=== PATIENT | female | born 1995 | race Caucasian/White ===

== ENCOUNTER → 2020-03-13 03:07 | Observation (INO) ==
[2020-03-13 02:29] LABS: Basophils # 0.1 K/mcL (0.0-0.2); Basophils % 0.4 %; Eosinophils # 0.2 K/mcL (0.0-0.6); Eosinophils % 1.9 %; Hematocrit 35.6 % (35.3-44.9); Hemoglobin 11.9 g/dL (11.5-15.4); Immature Granulocytes % 0.4 % (0-4); Lymphocytes # 2.8 K/mcL (0.6-4.6); Lymphocytes % 22.7 %; Mean Corpuscular HGB Conc 33.4 g/dL (31.6-35.5); Mean Corpuscular Hemoglobin 27.7 pg (28.0-33.3); Mean Corpuscular Volume 82.8 fL (83.0-100.0); Mean Platelet Volume 10.3 fL (9.4-12.4); Monocytes # 0.8 K/mcL (0.0-1.3); Monocytes % 6.7 %; Neutrophils # 8.4 K/mcL (1.6-8.9); Platelet Count 288 K/mcL (140-400); Red Cell Distribution Width 12.9 % (11.5-14.5); Segmented Neutrophils % 67.9 %; White Blood Count 12.4 K/mcL (4.3-11.1)
[2020-03-13 02:32] LABS: Protein/Creatinine Ratio,Urine 0.12 mg/mg (0.00-0.20)
[2020-03-13 02:42] LABS: Lactate Dehydrogenase 141 Units/L (140-271); Uric Acid 5.1 mg/dL (2.3-7.6); eGFR For African Americans > 60 (> 60); eGFR For Non-African Americans > 60 (> 60)
[2020-03-13 07:59] LABS: Alanine Aminotransferase 13 Units/L (7-52); Aspartate Amino Transferase 11 Units/L (13-39); BUN/Creatinine Ratio 18 (6-26); Blood Urea Nitrogen 8 mg/dL (6-20)
== END | disposition home or self-care (01) ==
LOC: 1NENULAB
PROVIDERS: ADMIT Student in an Organized Health Care Education/Training Program; ATTEND Student in an Organized Health Care Education/Training Program

== ENCOUNTER 2020-05-03 01:20 | Observation (INO) ==
[2020-05-03 02:07] LABS: Protein/Creatinine Ratio,Urine 0.11 mg/mg (0.00-0.20)
[2020-05-03 02:26] LABS: Basophils # 0.1 K/mcL (0.0-0.2); Basophils % 0.6 %; Eosinophils # 0.3 K/mcL (0.0-0.6); Eosinophils % 2.5 %; Hematocrit 35.2 % (35.3-44.9); Hemoglobin 11.4 g/dL (11.5-15.4); Immature Granulocytes % 0.3 % (0-4); Lymphocytes # 2.8 K/mcL (0.6-4.6); Lymphocytes % 27.5 %; Mean Corpuscular HGB Conc 32.4 g/dL (31.6-35.5); Mean Corpuscular Hemoglobin 26.3 pg (28.0-33.3); Mean Corpuscular Volume 81.3 fL (83.0-100.0); Mean Platelet Volume 11.3 fL (9.4-12.4); Monocytes # 0.7 K/mcL (0.0-1.3); Monocytes % 6.8 %; Neutrophils # 6.3 K/mcL (1.6-8.9); Platelet Count 279 K/mcL (140-400); Red Blood Count 4.33 M/mcL (3.82-4.97); Red Cell Distribution Width 12.6 % (11.5-14.5); Segmented Neutrophils % 62.3 %; White Blood Count 10.2 K/mcL (4.3-11.1)
[2020-05-03 02:48] LABS: Alanine Aminotransferase 9 Units/L (7-52); Aspartate Amino Transferase 12 Units/L (13-39); BUN/Creatinine Ratio 13 (6-26); Blood Urea Nitrogen 7 mg/dL (6-20); Lactate Dehydrogenase 163 Units/L (140-271); eGFR For African Americans > 60 (> 60); eGFR For Non-African Americans > 60 (> 60)
== END 2020-05-03 02:45 | disposition home or self-care (01) ==
LOC: 1NENULAB
PROVIDERS: ADMIT Obstetrics & Gynecology; ATTEND Obstetrics & Gynecology

== ENCOUNTER 2020-05-20 06:14 | Inpatient (IN) ==
[2020-05-20] MEDS ORDERED: Famotidine 20 MG/2 ML VIAL IVP PRN (06:36)
[2020-05-20] MEDS ORDERED: Naloxone 0.4 MG/ML INJ IVP PRN (06:36)
[2020-05-20] MEDS ORDERED: Metoclopramide 10 MG/2 ML VIAL IVP PRN ×2 (06:36→18:49)
[2020-05-20] MEDS ORDERED: CeFAZolin Syr 3,000MG/30 ML 3,000 MG/30 ML SYRINGE IVPB ONE (06:39)
[2020-05-20] MEDS ORDERED: Ringers Solution, Lactated 1,000 ML IVC SCH (06:45)
[2020-05-20] MEDS ORDERED: Ringers Solution, Lactated 1,000 ML ONE ×3 (06:51→14:22)
[2020-05-20 07:23] LABS: Basophils # 0.1 K/mcL (0.0-0.2); Basophils % 0.7 %; Eosinophils # 0.2 K/mcL (0.0-0.6); Eosinophils % 1.9 %; Hematocrit 37.2 % (35.3-44.9); Hemoglobin 11.9 g/dL (11.5-15.4); Immature Granulocytes % 0.3 % (0-4); Lymphocytes # 2.3 K/mcL (0.6-4.6); Lymphocytes % 22.4 %; Mean Corpuscular Hemoglobin 25.5 pg (28.0-33.3); Mean Corpuscular Volume 79.8 fL (83.0-100.0); Mean Platelet Volume 11.1 fL (9.4-12.4); Monocytes # 0.7 K/mcL (0.0-1.3); Monocytes % 6.6 %; Neutrophils # 7.1 K/mcL (1.6-8.9); Platelet Count 269 K/mcL (140-400); Red Blood Count 4.66 M/mcL (3.82-4.97); Red Cell Distribution Width 13.2 % (11.5-14.5); Segmented Neutrophils % 68.1 %; White Blood Count 10.4 K/mcL (4.3-11.1)
[2020-05-20] MEDS ORDERED: Dexamethasone 4 MG/ML VIAL ONE (07:41)
[2020-05-20] MEDS ORDERED: Ketorolac 30 MG/ML VIAL ONE (07:41)
[2020-05-20] MEDS ORDERED: Ondansetron 4 MG/2 ML VIAL ONE (07:41)
[2020-05-20] MEDS ORDERED: *HR* Phenylephrine 10 MG/ML VIAL ONE (07:41)
[2020-05-20] MEDS ORDERED: *HR* Oxytocin 10 UNIT/ML VIAL IM ONE ×2 (07:42→14:23)
[2020-05-20] MEDS ORDERED: EPHEDrine 50 MG/ML VIAL ONE (07:51)
[2020-05-20] MEDS ORDERED: *HR* Midazolam HCl 2 MG/2 ML VIAL ONE (07:52)
[2020-05-20] MEDS ORDERED: *HR* FentaNYL (PF) 100 MCG/2 ML VIAL ONE (07:53)
[2020-05-20] MEDS ORDERED: *HR* Morphine Sulfate/PF 10 MG/10 ML AMPUL ONE (07:53)
[2020-05-20 08:46] LABS: Amphetamine Screen,Urine Negative ng/mL (Cutoff=1000); Barbiturate Screen,Urine Negative ng/mL (Cutoff=200); Benzodiazepines Screen,Urine Negative ng/mL (Cutoff=200); Cannabinoid Screen,Urine Negative ng/mL (Cutoff = 50); Cocaine Screen,Urine Negative ng/mL (Cutoff= 300); Opiate Screen,Urine Negative ng/mL (Cutoff=300); Phencyclidine Screen,Urine Negative ng/mL (Cutoff=25)
[2020-05-20] MEDS ORDERED: *HR* Labetalol 20 MG/4 ML SYRINGE IVP ONE (15:15)
[2020-05-20] MEDS ORDERED: Oxytocin 20 units/ LR 1000 mL 20 UNIT/1,000 ML BAG IVC ONE (17:24)
[2020-05-20] MEDS ORDERED: Simethicone 80 MG TAB.CHEW PO PRN (18:49)
[2020-05-20] MEDS ORDERED: Ondansetron 4 MG/2 ML VIAL IVP PRN (18:49)
[2020-05-20] MEDS ORDERED: Rho Immune Globulin 1,500 UNIT SYRINGE IM ONE (18:49)
[2020-05-20] MEDS ORDERED: *HR* OxyCODONE/APAP 5/325 TABLET PO PRN (18:49)
[2020-05-20] MEDS ORDERED: Oxytocin 20 units/ LR 1000 mL 20 UNIT/1,000 ML BAG IVC SCH (18:49)
[2020-05-20] MEDS ORDERED: Sennosides 8.6 MG TABLET PO PRN (18:49)
[2020-05-20] MEDS: metroNIDAZOLE 500 MG TABLET PO SCH (21:23)
[2020-05-20] MEDS: cephALEXin 500 MG CAPSULE PO SCH (21:23)
[2020-05-20] MEDS: Ibuprofen 600 MG TABLET PO PRN (23:51)
[2020-05-21 07:15] LABS: Basophils % 0.2 %; Hematocrit 29.7 % (35.3-44.9); Immature Granulocytes % 0.4 % (0-4); Lymphocytes # 1.5 K/mcL (0.6-4.6); Lymphocytes % 12.5 %; Mean Corpuscular HGB Conc 32.3 g/dL (31.6-35.5); Mean Corpuscular Hemoglobin 26.2 pg (28.0-33.3); Mean Corpuscular Volume 80.9 fL (83.0-100.0); Monocytes # 1.1 K/mcL (0.0-1.3); Monocytes % 9.3 %; Neutrophils # 9.4 K/mcL (1.6-8.9); Platelet Count 227 K/mcL (140-400); Red Blood Count 3.67 M/mcL (3.82-4.97); Red Cell Distribution Width 13.2 % (11.5-14.5); Segmented Neutrophils % 77.6 %; White Blood Count 12.1 K/mcL (4.3-11.1)
[2020-05-21 07:19] LABS: Hemoglobin 9.6 g/dL (11.5-15.4)
[2020-05-21 07:52] VITALS: BP 122/75
[2020-05-21] MEDS: Ibuprofen 600 MG TABLET PO PRN (07:54)
[2020-05-21] MEDS: metroNIDAZOLE 500 MG TABLET PO SCH (07:55)
[2020-05-21] MEDS: cephALEXin 500 MG CAPSULE PO SCH (07:55)
[2020-05-21] MEDS ORDERED: Prenatal Vit/FA 1 EACH TABLET PO SCH (09:00)
== END 2020-05-21 14:19 | disposition home or self-care (01) | DRG 539 ==
LOC: 1NENULAB 06:14 → 1NENUOBS 18:38
PROVIDERS: ADMIT Student in an Organized Health Care Education/Training Program; ATTEND Student in an Organized Health Care Education/Training Program

== ENCOUNTER 2020-06-03 18:08 | Observation (INO) ==
[2020-06-03] MEDS ORDERED: 0.9 % Sodium Chloride 1,000 ML IVC ONE ×2 (18:46→19:32)
[2020-06-03] MEDS ORDERED: Vancomycin 1,500 MG/265 ML IV.SOLN IVPB ONE (18:46)
[2020-06-03] MEDS ORDERED: Piperacillin/Tazobactam 3.375 GM in Water for inj. (sterile) 20 ML IVP ONE (18:46)
[2020-06-03] MEDS ORDERED: Isovue-370 500 ML BOTTLE IVP ONE (18:47)
[2020-06-03 19:09] LABS: Basophils # 0.1 K/mcL (0.0-0.2); Basophils % 0.5 %; Eosinophils # 0.3 K/mcL (0.0-0.6); Eosinophils % 2.1 %; Hematocrit 33.4 % (35.3-44.9); Hemoglobin 10.2 g/dL (11.5-15.4); Immature Granulocytes % 0.4 % (0-4); Lymphocytes # 1.7 K/mcL (0.6-4.6); Lymphocytes % 12.6 %; Mean Corpuscular HGB Conc 30.5 g/dL (31.6-35.5); Mean Corpuscular Hemoglobin 25.1 pg (28.0-33.3); Mean Corpuscular Volume 82.3 fL (83.0-100.0); Mean Platelet Volume 10.3 fL (9.4-12.4); Monocytes # 0.9 K/mcL (0.0-1.3); Monocytes % 6.7 %; Neutrophils # 10.7 K/mcL (1.6-8.9); Platelet Count 412 K/mcL (140-400); Red Blood Count 4.06 M/mcL (3.82-4.97); Red Cell Distribution Width 13.8 % (11.5-14.5); Segmented Neutrophils % 77.7 %; White Blood Count 13.8 K/mcL (4.3-11.1)
[2020-06-03 19:30] LABS: Bilirubin,Urine Negative (Negative); Blood,Urine Small (Negative); Clarity,Urine Clear (Clear); Color,Urine Light-Yellow (Yellow); Glucose,Urine (UA) Normal (Normal); Ketones,Urine Negative (Negative); Leukocyte Esterase,Urine Moderate (Negative); Mucus,Urine Few per lpf (None-Few); Nitrite,Urine Negative (Negative); Protein,Urine Trace mg/dL (Neg-Trace); RBC,Urine 0-3 per hpf (0-3); Specific Gravity,Urine 1.013 (1.010-1.025); Squamous Epithelial Cell,Urine Few per hpf (None-Few); Transitional Epi Cells,Urine Few per hpf (None-Few); Urobilinogen,Urine Normal (Normal); WBC,Urine 15-30 per hpf (0-3)
[2020-06-03 20:11] LABS: BUN/Creatinine Ratio 10 (6-26); Blood Urea Nitrogen 8 mg/dL (6-20); Carbon Dioxide 26 mEq/L (23-29); Chloride 100 mEq/L (98-107); Glucose 86 mg/dL (70-105); Osmolality,Calculated 284 (280-300); Potassium 3.3 mEq/L (3.5-5.1); Sodium 138 mEq/L (136-145); eGFR For African Americans > 60 (> 60); eGFR For Non-African Americans > 60 (> 60)
[2020-06-03] MEDS ORDERED: Ondansetron 4 MG/2 ML VIAL IVP PRN (22:54)
[2020-06-03] MEDS ORDERED: *HR* OxyCODONE Immed Rel 5 MG TABLET PO PRN (22:54)
[2020-06-03] MEDS ORDERED: Simethicone 80 MG TAB.CHEW PO PRN (22:54)
[2020-06-03] MEDS ORDERED: Metoclopramide 10 MG/2 ML VIAL IVP PRN (22:54)
[2020-06-04] MEDS ORDERED: Piperacillin/Tazobactam 4.5 GM in 0.9 % Sodium Chloride Mini Bag 100 ML IVPB SCH
[2020-06-04] MEDS: Ibuprofen 600 MG TABLET PO SCH ×4 (00:59→17:30)
[2020-06-04] MEDS: Acetaminophen 325 MG TABLET PO SCH ×4 (02:43→21:25)
[2020-06-04 04:18] LABS: Basophils # 0.1 K/mcL (0.0-0.2); Basophils % 0.6 %; Eosinophils # 0.2 K/mcL (0.0-0.6); Eosinophils % 2.4 %; Hematocrit 28.9 % (35.3-44.9); Hemoglobin 8.8 g/dL (11.5-15.4); Immature Granulocytes % 0.5 % (0-4); Lymphocytes % 19.3 %; Mean Corpuscular HGB Conc 30.4 g/dL (31.6-35.5); Mean Corpuscular Hemoglobin 25.3 pg (28.0-33.3); Mean Platelet Volume 10.1 fL (9.4-12.4); Monocytes # 0.8 K/mcL (0.0-1.3); Monocytes % 8.2 %; Platelet Count 348 K/mcL (140-400); Red Blood Count 3.48 M/mcL (3.82-4.97); Red Cell Distribution Width 14.1 % (11.5-14.5); White Blood Count 10.2 K/mcL (4.3-11.1)
[2020-06-04 04:36] LABS: Alanine Aminotransferase 12 Units/L (7-52); Albumin 2.9 g/dL (3.5-5.7); Alkaline Phosphatase 106 Units/L (34-104); Aspartate Amino Transferase 17 Units/L (13-39); BUN/Creatinine Ratio 10 (6-26); Bilirubin,Total 0.3 mg/dL (0.3-1.0); Blood Urea Nitrogen 8 mg/dL (6-20); Calcium 7.7 mg/dL (8.6-10.3); Carbon Dioxide 26 mEq/L (23-29); Chloride 107 mEq/L (98-107); Globulin 2.8 g/dL (2.4-3.5); Glucose 141 mg/dL (70-105); Osmolality,Calculated 289 (280-300); Potassium 3.3 mEq/L (3.5-5.1); Sodium 139 mEq/L (136-145); Total Protein 5.7 g/dL (6.4-8.9); eGFR For African Americans > 60 (> 60); eGFR For Non-African Americans > 60 (> 60)
[2020-06-04] MEDS ORDERED: 0.9 % Sodium Chloride 500 ML ONE (06:01)
[2020-06-04] MEDS: *HR* Enoxaparin 80 MG/0.8 ML SYRINGE SQ SCH ×2 (06:19→17:31)
[2020-06-04] MEDS: Piperacillin/Tazobactam 3.375 GM in 0.9 % Sodium Chloride Mini Bag 100 ML IVPB SCH ×3 (06:22→21:23)
[2020-06-04] MEDS: Prenatal Vit/FA 1 EACH TABLET PO SCH (09:05)
[2020-06-04] MEDS: Ringers Solution, Lactated 1,000 ML IVC SCH (10:31)
[2020-06-05] MEDS: Ibuprofen 600 MG TABLET PO SCH ×4 (01:02→18:40)
[2020-06-05] MEDS: Acetaminophen 325 MG TABLET PO SCH ×3 (03:54→16:22)
[2020-06-05] MEDS: Ringers Solution, Lactated 1,000 ML IVC SCH ×2 (03:55→17:00)
[2020-06-05] MEDS: Piperacillin/Tazobactam 3.375 GM in 0.9 % Sodium Chloride Mini Bag 100 ML IVPB SCH ×3 (05:56→21:38)
[2020-06-05] MEDS: *HR* Enoxaparin 80 MG/0.8 ML SYRINGE SQ SCH ×2 (05:57→16:53)
[2020-06-05] MEDS: Prenatal Vit/FA 1 EACH TABLET PO SCH (12:41)
[2020-06-05] MEDS: Clindamycin 900 MG/50 ML 900 MG/50 ML IV.SOLN IVPB SCH (16:22)
[2020-06-06] MEDS: Clindamycin 900 MG/50 ML 900 MG/50 ML IV.SOLN IVPB SCH (00:12)
[2020-06-06] MEDS: Ringers Solution, Lactated 1,000 ML IVC SCH (05:53)
[2020-06-06] MEDS: Piperacillin/Tazobactam 3.375 GM in 0.9 % Sodium Chloride Mini Bag 100 ML IVPB SCH (05:53)
[2020-06-06] MEDS: *HR* Enoxaparin 80 MG/0.8 ML SYRINGE SQ SCH ×2 (05:54→18:31)
[2020-06-06] MEDS: Acetaminophen 325 MG TABLET PO SCH ×3 (05:55→23:43)
[2020-06-06] MEDS: Ibuprofen 600 MG TABLET PO SCH ×3 (07:40→23:43)
[2020-06-06] MEDS: Prenatal Vit/FA 1 EACH TABLET PO SCH (07:41)
[2020-06-06] MEDS ORDERED: Ondansetron ODT 4 MG TAB.RAPDIS SL PRN (10:55)
[2020-06-06] MEDS: levoFLOXacin 750 MG TABLET PO SCH (12:58)
[2020-06-06 23:56] VITALS: BP 139/90
[2020-06-07] MEDS: *HR* Enoxaparin 80 MG/0.8 ML SYRINGE SQ SCH (06:20)
[2020-06-07] MEDS: Ibuprofen 600 MG TABLET PO SCH (06:22)
[2020-06-07] MEDS: Acetaminophen 325 MG TABLET PO SCH (06:22)
[2020-06-07] MEDS ORDERED: levoFLOXacin 750 MG TABLET PO SCH (09:00)
[2020-06-07] MEDS: Prenatal Vit/FA 1 EACH TABLET PO SCH (11:07)
[2020-06-07] MEDS: levoFLOXacin 750 MG TABLET PO SCH (11:07)
== END 2020-06-07 14:29 | disposition home or self-care (01) ==
LOC: 1NENUOBS 18:08 → EMEROOARM 18:08 → 1NENUOBS 22:56
PROVIDERS: ADMIT Obstetrics & Gynecology; ATTEND Obstetrics & Gynecology

== ENCOUNTER 2020-07-10 18:07 | Observation (INO) ==
[2020-07-10] MEDS ORDERED: Isovue-370 500 ML BOTTLE IVP ONE (18:23)
[2020-07-10 18:57] LABS: Bacteria,Urine Few per hpf (None-Few); Bilirubin,Urine Negative (Negative); Blood,Urine Small (Negative); Clarity,Urine Clear (Clear); Color,Urine Light-Yellow (Yellow); Glucose,Urine (UA) Normal (Normal); Ketones,Urine Negative (Negative); Leukocyte Esterase,Urine Negative (Negative); Mucus,Urine Few per lpf (None-Few); Nitrite,Urine Negative (Negative); Protein,Urine Negative (Neg-Trace); RBC,Urine 0-3 per hpf (0-3); Specific Gravity,Urine 1.013 (1.010-1.025); Squamous Epithelial Cell,Urine Few per hpf (None-Few); Urobilinogen,Urine Normal (Normal); WBC,Urine 0-3 per hpf (0-3)
[2020-07-10 19:13] LABS: Basophils # 0.1 K/mcL (0.0-0.2); Basophils % 0.9 %; Eosinophils # 0.3 K/mcL (0.0-0.6); Eosinophils % 3.6 %; Hematocrit 35.4 % (35.3-44.9); Hemoglobin 10.8 g/dL (11.5-15.4); Immature Granulocytes % 0.1 % (0-4); Lymphocytes # 2.3 K/mcL (0.6-4.6); Lymphocytes % 28.1 %; Mean Corpuscular HGB Conc 30.5 g/dL (31.6-35.5); Mean Corpuscular Hemoglobin 24.1 pg (28.0-33.3); Mean Corpuscular Volume 78.8 fL (83.0-100.0); Mean Platelet Volume 9.8 fL (9.4-12.4); Monocytes # 0.5 K/mcL (0.0-1.3); Monocytes % 6.2 %; Platelet Count 277 K/mcL (140-400); Red Blood Count 4.49 M/mcL (3.82-4.97); Red Cell Distribution Width 14.7 % (11.5-14.5); Segmented Neutrophils % 61.1 %; White Blood Count 8.1 K/mcL (4.3-11.1)
[2020-07-10 19:40] LABS: BUN/Creatinine Ratio 15 (6-26); Blood Urea Nitrogen 10 mg/dL (6-20); Calcium 8.4 mg/dL (8.6-10.3); Carbon Dioxide 25 mEq/L (23-29); Chloride 107 mEq/L (98-107); Glucose 94 mg/dL (70-105); Osmolality,Calculated 291 (280-300); Potassium 3.2 mEq/L (3.5-5.1); Sodium 141 mEq/L (136-145); eGFR For African Americans > 60 (> 60); eGFR For Non-African Americans > 60 (> 60)
[2020-07-10] MEDS ORDERED: Vancomycin 2,000 MG/520 ML IV.SOLN IVPB ONE (20:44)
[2020-07-10 22:05] VITALS: BP 124/79
== END 2020-07-11 00:25 | disposition home or self-care (01) ==
LOC: 1NENUOBS 18:07 → EMEROOARM 18:07 → 1NENUOBS 22:15
PROVIDERS: ADMIT Obstetrics & Gynecology; ATTEND Obstetrics & Gynecology